=== PATIENT | male | born 1970 | race Caucasian/White ===

== ENCOUNTER 2019-08-07 05:19 | Emergency (ER) | payer SELFPAY ==
--- NOTE | 2019-08-07 07:04 | EKG REPORT ---
SEVERITY:- ABNORMAL ECG - SINUS RHYTHM RBBB AND LAFB : Confirmed by: Ab Purdy MD 07-Aug-2019 07:04:14
[2019-08-07 07:19] LABS: ABSOLUTE EOSINOPHILS # (AUTO) 0.2 10^3/uL (0.0-0.6); ABSOLUTE LYMPHOCYTES (AUTO) 1.2 10^3/uL (0.5-4.7); ABSOLUTE MONOCYTES (AUTO) 0.8 10^3/uL (0.1-1.4); ABSOLUTE NEUT (AUTO) 5.3 10^3/uL (1.7-8.2); BASOPHILS % (AUTO) 0.7 % (0-2); EOSINOPHILS % (AUTO) 2.8 % (0-6); HEMATOCRIT 38.2 % (37.9-51.0); HEMOGLOBIN 13.2 g/dL (13.5-17.0); LYMPHOCYTES % (AUTO) 15.8 % (13-45); MEAN CORPUSCULAR HEMOGLOBIN 32.6 pg (27.0-33.4); MEAN CORPUSCULAR HGB CONC 34.4 g/dL (32.0-36.0); MEAN CORPUSCULAR VOLUME 95 fl (80-97); MONOCYTES % (AUTO) 10.3 % (3-13); PLATELET COUNT 182 10^3/uL (150-450); RED BLOOD COUNT 4.04 10^6/uL (4.35-5.55); RED CELL DISTRIBUTION WIDTH 13.8 % (11.5-14.0); SEGMENTED NEUTROPHILS % (AUTO) 70.4 % (42-78); TOTAL CELLS COUNTED % (AUTO) 100 %; WHITE BLOOD COUNT 7.5 10^3/uL (4.0-10.5)
--- NOTE | 2019-08-07 07:20 | RADIOLOGY REPORT (SQ) ---
EXAM DESCRIPTION: CT HEAD WITHOUT IV CONTRAST COMPLETED DATE/TME: 08/07/2019 06:09 CLINICAL HISTORY: altered Mental Status COMPARISON: None available TECHNIQUE: Axial CT of the head obtained from the skull apex to the skull base without contrast. FINDINGS: Minimal foci of hyperdensity in right posterior temporal region with minimal surrounding edema, best seen on images #21 and 22. No significant mass effect or midline shift. The ventricular system is unremarkable. No acute abnormalities of the supratentorial white matter, basal ganglia, cerebellum, or brainstem. Minimal opacities in the left maxillary sinus. Mastoid air cells are well aerated. No skull fracture identified. Visualized orbits and globes are unremarkable. IMPRESSION: 1. Minimal foci of hyperdensity in the posterior right temporal lobe best seen on image #21 and 22. This may represent small foci of intraparenchymal or subarachnoid hemorrhage with mild surrounding edema. Alternatively, small vascular malformation or intra-axial mass could produce a similar appearance. Correlation with contrast-enhanced MRI recommended for more complete characterization. Urgent finding reported to Dr. Maxx Perez at 08/07/2019 6:17 AM [facility] This exam was performed according to our departmental dose-optimization program, which includes automated exposure control, adjustment of the mA and/or kV according to patient size and/or use of iterative reconstruction technique.
--- NOTE | 2019-08-07 07:44 | ER Document Report ---
ED General - General Chief Complaint: Altered Mental Status Stated Complaint: POSSIBLE AMNESIA Time Seen by Provider: 08/07/19 06:01 Notes: 49-year-old man found outside on the ground and brought to the emergency department for further evaluation and treatment. Patient was acting confused and very slow to answer questions. There are no signs of trauma and her rectal temp was 95.5. At 1439 patient's mother called and stated the patient has seizure disorder and anxiety disorder and that he has been known to pass out in the past. TRAVEL OUTSIDE OF THE [place] IN LAST 30 DAYS: No - Related Data Allergies/Adverse Reactions: No Known Allergies Allergy (Verified 04/27/19 23:57) Past Medical History - Social History Smoking Status: Current Every Day Smoker Frequency of alcohol use: Occasional Family History: Reviewed & Not Pertinent Patient has suicidal ideation: No Patient has homicidal ideation: No - Past Medical History Cardiac Medical History: Reports: Hx Congestive Heart Failure, Hx Heart Attack, Hx Hypertension Pulmonary Medical History: Reports: Hx Asthma Neurological Medical History: Reports: Hx Seizures Musculoskeletal Medical History: Reports Hx Arthritis Psychiatric Medical History: Reports: Hx Bipolar Disorder, Hx Depression, Hx Schizophrenia Past Surgical History: Reports: Hx Cardiac Catheterization, Hx Cardiac Surgery Review of Systems - Review of Systems Notes: Constitutional: + Hypothermia HENT: Negative for signs of trauma Eyes: Negative for visual changes. Cardiovascular: Negative for chest pain. Respiratory: Negative for shortness of breath. Gastrointestinal: Negative for abdominal pain, vomiting or diarrhea. Genitourinary: Negative for dysuria. Musculoskeletal: Negative for back pain. Skin: Negative for rash. Neurological: Negative for headaches, weakness or numbness. 10 point ROS negative except as marked above and in HPI. Physical Exam - Vital signs Vitals: Resp Pulse Ox 12 97 08/07/19 05:26 08/07/19 05:26 - Notes Notes: PHYSICAL EXAMINATION: Physical Exam: General: Well-nourished well-developed in no acute distress HEENT: NC/AT, pupils equal round and reactive to light, MM moist,nares clear, Neck: supple, no adenopathy, no masses. Lungs: clear, no wheezing, no rales no rhonchi CVS: Regular rate and rhythm no murmur gallop or rub Abdomen: Soft active nontender, no masses, no hepatosplenomegaly Ext: No edema clubbing or cyanosis. Neuro: Patient is drowsy, but arousable, slow to answer questions and requires stimulus to keep his eyes open. Moving all 4 extremities on command, cranial nerves intact. Skin: Intact no open lesions, no rash Pill found in the patient's sock during the removal of his shoes and socks is identified as methadone. Course - Re-evaluation Re-evalutation: 08/07/19 14:26 Patient continues to be lethargic and poor ability to maintain a conversation. MRI is positive for hemorrhagic foci in the right posterior temporal region. I have discussed that finding with the patient, however, I am not completely sure that he comprehended the extent of the conversation. Transfer center at [facility] was contacted, Dr. Krupa Rocha will be accepting the patient in transfer. The recommendation was for Keppra and TXA to be started prior to the transfer. 08/07/19 15:01 Urine drug screen results positive for opiates, methadone, benzo and? Amphetamines. - Vital Signs Vital signs: Temp Pulse Resp BP Pulse Ox 98.7 F 67 16 125/82 98 08/07/19 13:37 08/07/19 07:48 08/07/19 14:35 08/07/19 14:35 08/07/19 14:35 - Laboratory Result Diagrams: 08/07/19 06:55 08/07/19 06:55 Laboratory results interpreted by me: 08/07/19 08/07/19 08/07/19 06:55 06:55 06:55 RBC 4.04 L Hgb 13.2 L APTT Sodium 135.7 L Carbon Dioxide 31 H AST 92 H Creatine Kinase 433 H CK-MB (CK-2) 5.40 H Urine Ketones Urine Urobilinogen 08/07/19 08/07/19 06:55 13:35 RBC Hgb APTT 36.5 H Sodium Carbon Dioxide AST Creatine Kinase CK-MB (CK-2) Urine Ketones 20 H Urine Urobilinogen 4.0 H - Diagnostic Test Radiology reviewed: Image reviewed - CT head noncontrast: 2 areas of radiodensity compatible with hemorrhage versus AV malformation or brain lesion, MRI is recommended MRI of the brain with contrast: Couple of tiny hemorrhagic f oci in the right posterior temporal region. No enhancing lesions are seen. No evidence of acute stroke., Reports reviewed - EKG Interpretation by Id EKG shows normal: Sinus rhythm - Rate of 59, right bundle branch block and left anterior fascicular block, Discharge - Discharge Clinical Impression: Intraparenchymal hemorrhage of brain, Seizure disorder Altered mental status Qualifiers: Altered mental status type: unspecified Qualified Code(s): R41.82 - Altered mental status, unspecified Condition: Fair Disposition: [facility]
[2019-08-07 07:54] LABS: ALBUMIN 3.8 g/dL (3.5-5.0); ALKALINE PHOSPHATASE 86 U/L (38-126); ANION GAP 6 (5-19); ASPARTATE AMINO TRANSFERASE 92 U/L (17-59); BILIRUBIN,DIRECT 0.4 mg/dL (0.0-0.4); BLOOD UREA NITROGEN 11 mg/dL (7-20); CARBON DIOXIDE 31 mmol/L (22-30); CHLORIDE 99 mmol/L (98-107); CREATINE KINASE 433 U/L (55-170); CREATINE KINASE MB 5.4 ng/mL (<4.55); GLUCOSE 93 mg/dL (75-110); POTASSIUM 3.8 mmol/L (3.6-5.0); TOTAL PROTEIN 6.9 g/dL (6.3-8.2); TROPONIN I 0.014 ng/mL
[2019-08-07 07:59] LABS: INTERNATIONAL RATION (INR) 0.92; PROTHROMBIN TIME 12.4 SEC (11.4-15.4)
[2019-08-07 08:00] LABS: PARTIAL THROMBOPLASTIN TIME 36.5 SEC (23.5-35.8)
[2019-08-07] MEDS ORDERED: LORAZEPAM INJ 2 MG/1 ML VIAL IV ONE (11:12)
--- NOTE | 2019-08-07 12:28 | RADIOLOGY REPORT (SQ) ---
EXAM DESCRIPTION: MRI HEAD COMBO COMPLETED DATE/TIME: 08/07/2019 12:10 pm REASON FOR STUDY: abnormal CT COMPARISON: None. TECHNIQUE: Multiplanar imaging includes noncontrasted T1, T2, FLAIR, diffusion with ADC map and post gadolinium contrast T1 sequences. Images stored on PACS. CONTRAST TYPE AND DOSE: 15 mL Dotarem. RENAL FUNCTION: Not indicated. ACR Type II contrast agent associated with few, if any, unconfounded cases of NSF LIMITATIONS: None. FINDINGS: ANATOMY: No anomalies. Normal vascular flow voids. Pituitary fossa normal. CSF SPACES: Normal in size and contour. No hemorrhage. CEREBRUM: Sulci and gyri normal in size and contour. Normal white matter signal on FLAIR imaging. Th ere is a small amount of hemosiderin in the right posterior temporal region. No abnormal enhancement post contrast. POSTERIOR FOSSA: No signal alteration. No hemorrhage. No edema, masses, or mass effect. Internal ayo tory canals, cerebellopontine angles, mastoids normal. No enhancing lesions. No abnormal enhancement post contrast. DIFFUSION IMAGING: Negative for acute or subacute infarction. ORBITS: No masses. Globes normal. PARANASAL SINUSES: No fluid levels. Mucosa normal. OTHER: No other significant finding. IMPRESSION: There appear to be a couple of tiny hemorrhagic foci in the right posterior temporal reg ion. No enhancing lesion is seen. EVIDENCE OF ACUTE STROKE: NO. TECHNICAL DOCUMENTATION: JOB ID: [id number] [employer]- All Rights Reserved Reading location - IP/workstation name: [email or web address]
[2019-08-07 13:46] LABS: APPEARANCE,URINE CLEAR; BILIRUBIN,URINE NEGATIVE (NEGATIVE); COLOR,URINE YELLOW; GLUCOSE, URINE NEGATIVE (NEGATIVE); KETONES,URINE 20 mg/dL (NEGATIVE); LEUKOCYTE ESTERASE,URINE NEGATIVE (NEGATIVE); NITRITE,URINE NEGATIVE (NEGATIVE); PROTEIN,URINE NEGATIVE (NEGATIVE)
[2019-08-07 14:02] LABS: URINE BARBITURATES SCREEN NEGATIVE; URINE COCAINE SCREEN NEGATIVE; URINE MARIJUANA (THC) SCREEN NEGATIVE; URINE PHENCYCLIDINE SCREEN NEGATIVE
[2019-08-07 14:12] LABS: URINE BENZODIAZEPINES SCREEN UNCONFIRMED POSITIVE
[2019-08-07 14:13] LABS: URINE METHADONE SCREEN UNCONFIRMED POSITIVE
[2019-08-07] MEDS ORDERED: LEVETIRACETAM 1000 MG/NACL-ISO 1,000 MG/100 ML RTUPB IV ONE (14:21)
[2019-08-07] MEDS ORDERED: TRANEXAMIC ACID INJ/PF 1,000 MG/10 ML SDV IV ONE (14:30)
[2019-08-07 14:44] VITALS: BP 125/82
== END 2019-08-07 15:14 | disposition short-term general hospital (02) ==
LOC: ER 05:19
DX: I61.9 Nontraumatic intracerebral hemorrhage, unspecified (principal); R41.82 Altered mental status, unspecified; G40.909 Epilepsy, unspecified, not intractable, without status epilepticus; F41.9 Anxiety disorder, unspecified; F17.200 Nicotine dependence, unspecified, uncomplicated; I50.9 Heart failure, unspecified; I11.0 Hypertensive heart disease with heart failure; J45.909 Unspecified asthma, uncomplicated
CPT/HCPCS: 93005; 99285; 96375; 96365; 36415; 82553; 82962; 80307 ×2; 82550; 85025; 85610; 85730; 80053; 81001; 84484; 70553; 70450; 93010; A9576; J2060; J1953; J3490